=== PATIENT | female | born 1995 | race Caucasian/White ===

== ENCOUNTER → 2016-07-25 | Outpatient (CLI) | payer BC ==
[2016-07-25 09:22] LABS: MEAN CORPUSCULAR HEMOGLOBIN 30.5 pg (27.0-33.0); MEAN CORPUSCULAR HGB CONC 32.8 g/dl (32.0-36.5); RED CELL DISTRIBUTION WIDTH 12.8 % (11.5-14.5); WHITE BLOOD COUNT 5.8 K/mm3 (4.0-10.0)
[2016-07-25 09:50] LABS: ALBUMIN 3.7 GM/DL (3.2-5.2); ALBUMIN/GLOBULIN RATIO 1.06 (1.00-1.93); ALKALINE PHOSPHATASE 51 U/L (45-117); ALT/SGPT 16 U/L (12-78); ANION GAP 5 MEQ/L (8-16); AST/SGOT 11 U/L (15-37); BILIRUBIN,TOTAL 0.4 MG/DL (0.2-1.0); BLOOD UREA NITROGEN 13 MG/DL (7-18); CALCIUM LEVEL 8.8 MG/DL (8.5-10.1); CARBON DIOXIDE LEVEL 27 MEQ/L (21-32); CHLORIDE LEVEL 107 MEQ/L (98-107); CHOLESTEROL LEVEL 196 MG/DL (<200); CREATININE FOR GFR 0.87 MG/DL (0.55-1.02); GLOMERULAR FILTRATION RATE > 60.0 (>60); GLUCOSE, FASTING 90 MG/DL (70-105); POTASSIUM SERUM 4.8 MEQ/L (3.5-5.1); SODIUM LEVEL 139 MEQ/L (136-145); TOTAL PROTEIN 7.2 GM/DL (6.4-8.2); TRIGLYCERIDES LEVEL 219 MG/DL (<150)
== END ==
LOC: M WUC 08:16
PROVIDERS: ATTEND Nurse Practitioner Family
DX: R53.83 Other fatigue (principal)

== ENCOUNTER → 2016-08-23 | Outpatient (CLI) | payer BC ==
[~2016-08-23] MED LIST: DOXY100C37 PO; birth control PO
--- NOTE | 2016-08-23 12:08 | REP ---
Thyroid ultrasound for nontoxic goiter: There are no comparison studies. The right and left lobes are enlarged. The right lobe measures of 5.4 x 1.8 x 1.9 cm. The left lobe measures 5.2 by 2.1 x 0.9 cm. The isthmus is not thickened measuring 2.5 mm. The thyroid parenchyma is diffusely inhomogeneous, compatible with goiter. There is a 1.9 mm cyst in the lower pole of the right lobe. There is a 3.4 mm nodule in the isthmus. There are no other focal masses or cysts. Occasional parathyroid lymph nodes are incidentally noted. Impression: Enlarged heterogeneous right and left lobes compatible with the clinical history of goiter. There is a small cyst in the right lobe. There is a small nodule in the isthmus. Signed by Jhon Peters MD 08/23/2016 11:59 A
[2016-08-23 13:13] LABS: THYROID PEROXIDASE ANTIBODY 188.3 U/ML (<60.0)
[2016-08-23 13:16] LABS: FREE T4 0.89 NG/DL (0.76-1.46)
== END ==
LOC: M RAD 10:29 → M LAB 10:29
PROVIDERS: ATTEND Nurse Practitioner Family
DX: E04.1 Nontoxic single thyroid nodule (principal)

== ENCOUNTER 2016-09-05 20:17 | Emergency (ER) | payer BC ==
[~2016-09-05] VITALS: Ht 167.6 cm; Wt 70.7 kg
[2016-09-05 20:17] VITALS: BP 135/80
[2016-09-05] MEDS ORDERED: birth control PO (20:27)
[2016-09-05] MEDS ORDERED: DOXY100C37 PO (22:37)
[2016-09-05] MEDS ORDERED: DOXYCYCLINE HYCLATE 100 MG TAB PO ONE (22:45)
[2016-09-08 00:06] LABS: Lyme Disease IgG/IgM Antibodie <0.91 ISR (0.00-0.90); Lyme Disease IgM Ab Quantitati <0.80 index (0.00-0.79)
== END 2016-09-05 22:47 | disposition home or self-care (01) ==
LOC: M ED 20:17
DX: A69.22 Other neurologic disorders in Lyme disease (principal); R21 Rash and other nonspecific skin eruption; E07.9 Disorder of thyroid, unspecified; Z79.3 Long term (current) use of hormonal contraceptives

== ENCOUNTER → 2019-01-27 | Outpatient (CLI) | payer BC ==
[2019-01-27 14:22] LABS: HEMATOCRIT 40.9 % (36.0-47.0); MEAN CORPUSCULAR HEMOGLOBIN 29.5 pg (27.0-33.0); MEAN CORPUSCULAR HGB CONC 31.8 g/dl (32.0-36.5); PLATELET COUNT, AUTOMATED 200 10^3/uL (150-450); WHITE BLOOD COUNT 3.9 10^3/uL (4.0-10.0)
[2019-01-27 14:23] LABS: HCG, SERUM QUALITATIVE NEGATIVE (NEGATIVE)
[2019-01-27 14:37] LABS: ALBUMIN 3.8 GM/DL (3.2-5.2); ALT/SGPT 16 U/L (12-78); BILIRUBIN,TOTAL 0.4 MG/DL (0.2-1.0); BLOOD UREA NITROGEN 10 MG/DL (7-18); CALCIUM LEVEL 9.2 MG/DL (8.5-10.1); CARBON DIOXIDE LEVEL 25 MEQ/L (21-32); CHLORIDE LEVEL 109 MEQ/L (98-107); CHOLESTEROL LEVEL 214 MG/DL (<200); CHOLESTEROL RISK RATIO 4.553 (<5); CREATININE FOR GFR 0.87 MG/DL (0.55-1.30); GLOMERULAR FILTRATION RATE > 60.0 (>60); GLUCOSE, FASTING 97 MG/DL (70-100); HDL CHOLESTEROL 47 MG/DL (>40); LDL CHOLESTEROL 131 MG/DL (<100); NON-HDL-C 167 MG/DL; POTASSIUM SERUM 4.8 MEQ/L (3.5-5.1); SODIUM LEVEL 140 MEQ/L (136-145); TOTAL PROTEIN 7.3 GM/DL (6.4-8.2); TRIGLYCERIDES LEVEL 178 MG/DL (<150)
== END ==
LOC: M WUC 10:42
PROVIDERS: ATTEND Family Medicine
DX: Z30.40 Encounter for surveillance of contraceptives, unspecified (principal); F39 Unspecified mood [affective] disorder; E66.3 Overweight

== ENCOUNTER 2020-04-23 02:28 | Emergency (ER) | payer BC ==
[~2020-04-23] VITALS: Ht 165.1 cm; Wt 79.7 kg
[2020-04-23 02:29] VITALS: BP 126/77
[2020-04-23] MEDS ORDERED: TETRACAINE 0.5% OPHTH SOLN 4ML OD ONE (02:50)
[2020-04-23] MEDS ORDERED: FLUORESCEIN OPHTH 1 MG STRIP OD ONE (02:50)
[2020-04-23] MEDS ORDERED: ERYT5OIN25 OD (03:40)
[2020-04-23] MEDS ORDERED: ERYTHROMYCIN OPHTH OINT OD ONE (03:40)
== END 2020-04-23 04:06 | disposition home or self-care (01) ==
LOC: M ED 02:28
DX: H57.89 Other specified disorders of eye and adnexa (principal); Z79.899 Other long term (current) drug therapy

== ENCOUNTER → 2020-05-10 | Outpatient (CLI) | payer BC ==
[~2020-05-10] MED LIST changes: +ERYT5OIN25 OD
[2020-05-10 16:46] LABS: BASO % 0.4 % (0.0-1.0); EOS # 0.1 10^3/uL (0.0-0.5); EOS % 0.7 % (0.0-3.0); HEMATOCRIT 40.5 % (36.0-47.0); HEMOGLOBIN 13.2 g/dl (12.0-15.5); LYMPH % 28.2 % (24.0-44.0); MEAN CORPUSCULAR HEMOGLOBIN 29.9 pg (27.0-33.0); MEAN CORPUSCULAR HGB CONC 32.6 g/dl (32.0-36.5); MEAN CORPUSCULAR VOLUME 91.6 fl (80.0-96.0); MONO # 0.5 10^3/uL (0.0-0.8); MONO % 7.3 % (2.0-8.0); NEUTROPHILS # 4.4 10^3/uL (1.5-8.5); NEUTROPHILS % 63.1 % (36.0-66.0); PLATELET COUNT, AUTOMATED 215 10^3/uL (150-450); RED BLOOD COUNT 4.42 10^6/uL (4.00-5.40)
[2020-05-10 17:33] LABS: ALBUMIN 4.3 GM/DL (3.2-5.2); ALT/SGPT 19 U/L (12-78); BILIRUBIN,TOTAL 0.2 MG/DL (0.2-1.0); BLOOD UREA NITROGEN 15 MG/DL (7-18); CALCIUM LEVEL 9.3 MG/DL (8.5-10.1); CARBON DIOXIDE LEVEL 29 MEQ/L (21-32); CHLORIDE LEVEL 106 MEQ/L (98-107); CHOLESTEROL LEVEL 169 MG/DL (<200); CREATININE FOR GFR 0.82 MG/DL (0.55-1.30); FREE T3 3.2 PG/ML (2.2-4.0); FREE T4 0.91 NG/DL (0.76-1.46); GLOMERULAR FILTRATION RATE > 60.0 (>60); GLUCOSE, FASTING 90 MG/DL (70-100); HDL CHOLESTEROL 43 MG/DL (>40); LDL CHOLESTEROL 58 MG/DL (<100); NON-HDL-C 126 MG/DL; POTASSIUM SERUM 4.5 MEQ/L (3.5-5.1); SODIUM LEVEL 140 MEQ/L (136-145); TOTAL 25(OH) VITAMIN D 24.6 NG/ML (30.0-100.0); TOTAL PROTEIN 7.6 GM/DL (6.4-8.2); TRIGLYCERIDES LEVEL 339 MG/DL (<150)
== END ==
LOC: M WUC 15:06
PROVIDERS: ATTEND Family Medicine
DX: E55.9 Vitamin D deficiency, unspecified (principal); E06.3 Autoimmune thyroiditis; E66.9 Obesity, unspecified

== ENCOUNTER → 2020-05-18 | Outpatient (CLI) | payer BC ==
--- NOTE | 2020-05-19 06:22 | REP ---
INDICATION: THYROID NODULES/CYSTS COMPARISON: 08/23/2016 TECHNIQUE: Atkinson scale and color evaluation of the thyroid gland using the linear high frequency transducer. FINDINGS: The thyroid gland is diffusely heterogeneous and mildly enlarged. The right thyroid lobe measures 5.6 x 2.2 x 1.9 cm and includes a 2.2 x 1.3 x 1.9 mm hypoechoic mid to lower pole focus stable compared to 2017. The isthmus measures 3.9 mm in width and includes 4.3 x 0.9 x 2.4 mm hypoechoic focus not identified on prior examination. Left lobe measures 6.1 x 1.6 x 2.1 cm. Normal appearing lymph node adjacent to the left lower thyroid pole is again identified and unchanged. IMPRESSION: Small hypoechoic likely insignificant nodules in the right lobe (stable) and isthmus (new). <Electronically signed by Isael Park > 05/19/20 0618
== END ==
LOC: M RAD 15:04
PROVIDERS: ATTEND Family Medicine
DX: E04.1 Nontoxic single thyroid nodule (principal)

== ENCOUNTER → 2021-05-19 | Outpatient (CLI) | payer BC ==
[~2021-05-19] MED LIST changes: +DOXY-443 PO; -DOXY100C37 PO
[2021-05-19 12:56] LABS: HEMATOCRIT 40.6 % (36.0-47.0); HEMOGLOBIN 13.5 g/dl (12.0-15.5); MEAN CORPUSCULAR HEMOGLOBIN 29.8 pg (27.0-33.0); MEAN CORPUSCULAR HGB CONC 33.3 g/dl (32.0-36.5); MEAN CORPUSCULAR VOLUME 89.6 fl (80.0-96.0); PLATELET COUNT, AUTOMATED 223 10^3/uL (150-450); RED BLOOD COUNT 4.53 10^6/uL (4.00-5.40); WHITE BLOOD COUNT 6.6 10^3/uL (4.0-10.0)
[2021-05-19 13:28] LABS: ALBUMIN 4.1 GM/DL (3.2-5.2); ALT/SGPT 28 U/L (12-78); BILIRUBIN,TOTAL 0.5 MG/DL (0.2-1.0); BLOOD UREA NITROGEN 15 MG/DL (7-18); CALCIUM LEVEL 9.7 MG/DL (8.5-10.1); CARBON DIOXIDE LEVEL 26 MEQ/L (21-32); CHLORIDE LEVEL 107 MEQ/L (98-107); CHOLESTEROL LEVEL 223 MG/DL (<200); CHOLESTEROL RISK RATIO 3.912 (<5); CREATININE FOR GFR 0.88 MG/DL (0.55-1.30); GLOMERULAR FILTRATION RATE > 60.0 (>60); GLUCOSE, FASTING 106 MG/DL (70-100); HDL CHOLESTEROL 57 MG/DL (>40); LDL CHOLESTEROL 142 MG/DL (<100); NON-HDL-C 166 MG/DL; POTASSIUM SERUM 4.3 MEQ/L (3.5-5.1); SODIUM LEVEL 138 MEQ/L (136-145); TOTAL PROTEIN 7.4 GM/DL (6.4-8.2); TRIGLYCERIDES LEVEL 119 MG/DL (<150)
[2021-05-19 13:29] LABS: FREE T3 3.3 PG/ML (2.2-4.0); FREE T4 0.84 NG/DL (0.76-1.46)
[2021-05-19 13:30] LABS: TOTAL 25(OH) VITAMIN D 28.8 NG/ML (30.0-100.0)
== END ==
LOC: M WUC 09:50
PROVIDERS: ATTEND Registered Nurse
DX: E66.9 Obesity, unspecified (principal); E55.9 Vitamin D deficiency, unspecified

== ENCOUNTER → 2021-06-10 | Outpatient (CLI) | payer BC | LOC: M WHC 12:03 | PROVIDERS: ATTEND Registered Nurse | DX: E04.0 Nontoxic diffuse goiter (principal) ==

== ENCOUNTER 2022-05-18 20:42 | Emergency (ER) | payer BC ==
[~2022-05-18] VITALS: Ht 165.1 cm; Wt 86.4 kg
[2022-05-18] MEDS ORDERED: VITMTA PO (21:43)
[2022-05-19 02:22] LABS: HEMATOCRIT 35.4 % (36.0-47.0); HEMOGLOBIN 11.5 g/dl (12.0-15.5); MEAN CORPUSCULAR HEMOGLOBIN 29.6 pg (27.0-33.0); MEAN CORPUSCULAR HGB CONC 32.5 g/dl (32.0-36.5); PLATELET COUNT, AUTOMATED 198 10^3/uL (150-450); RED BLOOD COUNT 3.89 10^6/uL (4.00-5.40); WHITE BLOOD COUNT 6.5 10^3/uL (4.0-10.0)
[2022-05-19 02:35] LABS: HCG, SERUM QUALITATIVE NEGATIVE (NEGATIVE)
[2022-05-19 03:14] LABS: BLOOD UREA NITROGEN 12 MG/DL (9-23); CARBON DIOXIDE LEVEL 25 MMOL/L (20-31); CHLORIDE LEVEL 107 MMOL/L (98-107); CREATININE FOR GFR 0.83 MG/DL (0.55-1.30); GLOMERULAR FILTRATION RATE > 60.0 (>60); GLUCOSE, FASTING 111 MG/DL (60-100); POTASSIUM SERUM 3.9 MMOL/L (3.5-5.1); SODIUM LEVEL 140 MMOL/L (136-145)
[2022-05-19 03:15] LABS: CPK CREATINE PHOSPHOKINASE 96 U/L (34-145)
[2022-05-19] MEDS ORDERED: NS 1,000 ML IV ONE (05:45)
[2022-05-19] MEDS ORDERED: IBUP-1022 PO (06:38)
[2022-05-19 07:22] VITALS: BP 114/74
== END 2022-05-19 07:24 | disposition home or self-care (01) ==
LOC: M ED 20:42
DX: S70.12XA Contusion of left thigh, initial encounter (principal); V86.55XA Driver of 3- or 4- wheeled all-terrain vehicle (ATV) injured in nontraffic accident, initial encounter; Y92.89 Other specified places as the place of occurrence of the external cause; Y93.89 Activity, other specified; Y99.8 Other external cause status

== ENCOUNTER → 2023-01-17 | Outpatient (CLI) | payer BC ==
[~2023-01-17] MED LIST changes: +IBUP-1022 PO; +VITMTA PO
[2023-01-17 16:56] LABS: FOLLICLE STIMULATING HORMONE 4.2 mIU/ML; TOTAL 25(OH) VITAMIN D 21.6 NG/ML (20.0-100.0)
[2023-01-17 16:57] LABS: LUTEINIZING HORMONE 4.8 mIU/ML; THYROID STIMULATING HORMONE 4.217 uIU/ML (0.55-4.78)
[2023-01-17 16:59] LABS: FREE T4 1.1 NG/DL (0.89-1.76)
[2023-01-17 17:01] LABS: FREE T3 3.6 PG/ML (2.3-4.2)
== END ==
LOC: M RAD 14:30
PROVIDERS: ATTEND Family Medicine
DX: E07.9 Disorder of thyroid, unspecified (principal)

== ENCOUNTER → 2023-05-30 | Outpatient (REF) | payer BC ==
[2023-05-30 16:17] LABS: FREE T4 1.02 NG/DL (0.89-1.76)
[2023-05-30 16:18] LABS: THYROID STIMULATING HORMONE 3.485 uIU/ML (0.55-4.78)
== END ==
LOC: M LABWUC 14:22
PROVIDERS: ATTEND Nurse Practitioner Family
DX: E06.3 Autoimmune thyroiditis (principal)

== ENCOUNTER → 2023-06-05 | Outpatient (CLI) | payer BC ==
[2023-06-05 10:52] LABS: BASO % 0.4 % (0.0-1.0); EOS % 0.6 % (0.0-3.0); HEMATOCRIT 41.4 % (36.0-47.0); HEMOGLOBIN 13.7 g/dl (12.0-15.5); LYMPH # 1.6 10^3/uL (1.5-5.0); LYMPH % 32.4 % (24.0-44.0); MEAN CORPUSCULAR HEMOGLOBIN 30.1 pg (27.0-33.0); MEAN CORPUSCULAR HGB CONC 33.1 g/dl (32.0-36.5); MONO # 0.4 10^3/uL (0.0-0.8); MONO % 7.2 % (2.0-8.0); NEUTROPHILS % 59.2 % (36.0-66.0); PLATELET COUNT, AUTOMATED 205 10^3/uL (150-450); RED BLOOD COUNT 4.55 10^6/uL (4.00-5.40)
[2023-06-05 11:01] LABS: ERYTHROCYTE SEDIMENTATION RATE 9 mm/hr (0-20)
[2023-06-05 11:16] LABS: C REACTIVE PROTEIN QUANTITATIV < 0.40 MG/DL (<1.0)
[2023-06-05 11:17] LABS: ALBUMIN 3.6 G/DL (3.2-5.2); ALKALINE PHOSPHATASE 75 U/L (46-116); ALT/SGPT 21 U/L (7.0-40); AST/SGOT 18 U/L (<34); BILIRUBIN,TOTAL 0.5 MG/DL (0.3-1.2); BLOOD UREA NITROGEN 13 MG/DL (9-23); CALCIUM LEVEL 8.9 MG/DL (8.5-10.1); CARBON DIOXIDE LEVEL 24 MMOL/L (20-31); CHLORIDE LEVEL 108 MMOL/L (98-107); CHOLESTEROL LEVEL 190 MG/DL (<200); CHOLESTEROL RISK RATIO 4.11 (<5); CREATININE FOR GFR 0.82 MG/DL (0.55-1.30); GLOMERULAR FILTRATION RATE > 60.0 (>60); GLUCOSE, FASTING 102 MG/DL (60-100); HDL CHOLESTEROL 46.2 MG/DL (>40); LDL CHOLESTEROL 115.6 MG/DL (<100); NON-HDL-C 143.8 MG/DL; POTASSIUM SERUM 4.6 MMOL/L (3.5-5.1); SODIUM LEVEL 139 MMOL/L (136-145); TOTAL PROTEIN 6.9 G/DL (5.7-8.2); TRIGLYCERIDES LEVEL 141 MG/DL (<150)
[2023-06-05 11:18] LABS: RHEUMATOID FACTOR QUANT 5.5 IU/ML (<14)
[2023-06-05 11:19] LABS: TOTAL 25(OH) VITAMIN D 16.9 NG/ML (20.0-100.0)
[2023-06-05 11:26] LABS: URIC ACID 4.9 MG/DL (3.1-7.8)
== END ==
LOC: M RAD 08:21
PROVIDERS: ATTEND Registered Nurse
DX: M25.472 Effusion, left ankle (principal)

== ENCOUNTER → 2023-12-14 | Outpatient (CLI) | payer BC ==
[~2023-12-14] MED LIST changes: +DOXY-441 PO; -DOXY-443 PO
[2023-12-14 18:32] LABS: FREE T4 1.15 NG/DL (0.89-1.76)
[2023-12-14 18:33] LABS: THYROID STIMULATING HORMONE 2.999 uIU/ML (0.55-4.78)
== END ==
LOC: M WUC 14:49
PROVIDERS: ATTEND Nurse Practitioner Family
DX: E06.3 Autoimmune thyroiditis (principal)

== ENCOUNTER → 2024-05-16 | Outpatient (CLI) | payer BC | LOC: M WHC 08:10 | PROVIDERS: ATTEND Registered Nurse | DX: R59.0 Localized enlarged lymph nodes (principal) ==

== ENCOUNTER → 2024-09-01 | Outpatient (CLI) | payer BC ==
[2024-09-01 13:32] LABS: ALT/SGPT 12.0 U/L (7.0-40); AST/SGOT 15.0 U/L (<34); CALCIUM LEVEL 8.9 MG/DL (8.5-10.1); CARBON DIOXIDE LEVEL 26.0 MMOL/L (20-31); CHLORIDE LEVEL 105.0 MMOL/L (98-107); CHOLESTEROL LEVEL 191.0 MG/DL (<200); CHOLESTEROL RISK RATIO 3.83 (<5); CREATININE FOR GFR 0.91 MG/DL (0.55-1.30); GLOMERULAR FILTRATION RATE 87.6 (>60); LDL CHOLESTEROL 120.6 MG/DL (<100); NON-HDL-C 141.2 MG/DL; POTASSIUM SERUM 4.3 MMOL/L (3.5-5.1); SODIUM LEVEL 142.0 MMOL/L (136-145); TRIGLYCERIDES LEVEL 103.0 MG/DL (<150)
[2024-09-01 13:33] LABS: FREE T4 1.15 NG/DL (0.89-1.76)
[2024-09-01 13:40] LABS: PLATELET COUNT, AUTOMATED 215 10^3/uL (150-450)
== END ==
LOC: M WUC 09:01
PROVIDERS: ATTEND Registered Nurse
DX: Z13.29 Encounter for screening for other suspected endocrine disorder (principal); Z13.220 Encounter for screening for lipoid disorders; Z13.21 Encounter for screening for nutritional disorder